=== PATIENT | female | born 2000 | race Caucasian/White ===

== ENCOUNTER 2018-05-10 10:39 | Inpatient (IN) | payer OTHER ==
[~2018-05-10] VITALS: Ht 162.6 cm; Wt 109.4 kg
[2018-06-17 17:07] VITALS: Ht 162.6 cm; Wt 109.4 kg
[2018-06-17] MEDS ORDERED: PNV11TAB PO (17:08)
[2018-06-17] MEDS: LACTATED RINGER'S 1,000 ML IV SCH ×2 (17:22→23:10)
[2018-06-17] MEDS ORDERED: OXYTOCIN 30 UNITS/LR 500 ML IV PRN (17:30)
[2018-06-17] MEDS ORDERED: OXYTOCIN 30 UNITS/LR 500 ML IV SCH ×2 (17:30)
[2018-06-17] MEDS ORDERED: METHYLERGONOVINE 0.2 MG INJ IM PRN (17:30)
[2018-06-17] MEDS ORDERED: MISOPROSTOL 200 MCG TAB PR PRN (17:30)
[2018-06-17] MEDS ORDERED: BUTORPHANOL 2 MG INJ IV PRN (17:30)
[2018-06-17] MEDS ORDERED: CARBOPROST 250 MCG INJ IM PRN (17:30)
[2018-06-17] MEDS ORDERED: IBUPROFEN 600 MG TAB PO PRN (17:30)
[2018-06-17] MEDS ORDERED: LIDOCAINE 1% (MPF) 30 ML INJ INJ PRN (17:30)
[2018-06-17] MEDS: MISOPROSTOL 50 MCG CAPSULE PO SCH (21:21)
[2018-06-18] MEDS: MISOPROSTOL 50 MCG CAPSULE PO SCH ×4 (01:28→14:14)
[2018-06-18] MEDS: LACTATED RINGER'S 1,000 ML IV SCH ×3 (07:05→23:30)
--- NOTE | 2018-06-18 20:41 | PREAC ---
Date/Time of Note Date/Time of Note DATE: 06/18/18 TIME: 20:40 Anesthesia Eval and Record Evaluation Time Pre-Procedure Interview DATE: 06/18/18 TIME: 20:40 Age 18 Sex female NPO: 8 hrs Preoperative diagnosis labor pain Planned procedure labor epidural Past Medical History Past Medical History: Includes GI: Obesity Surgery & Anesthesia Issues No known issue Meds Anticoagulation: No Beta Magnolia within 24 hr: No Reason Beta Magnolia not given: Pt. not on B-Magnolia Reported Medications [id number] ( 19) 1 Each Tablet, 1 TAB PO DAILY, TAB 06/17/18 Current Medications Lactated Ringer's 1,000 ml @ 125 mls/hr Q8H IV Last administered on 06/18/18at 20:27; Admin Dose 125 MLS/HR; Start 06/17/18 at 17:08 Butorphanol Tartrate (Stadol) 2 mg Q2H PRN IV .PAIN; Start 06/17/18 at 17:30 Lidocaine (Xylocaine 1% (Mpf)) 30 ml ONCE PRN INJ .EPISIOTOMY; Start 06/17/18 at 17:30 Oxytocin/Lactated Ringer's 500 ml @ 500 mls/hr ONCE POST IV ; Start 06/17/18 at 17:30 Oxytocin/Lactated Ringer's 500 ml @ 125 mls/hr POST IV ; Start 06/17/18 at 17:30 Ibuprofen (Motrin) 600 mg ONCE PRN PO .PAIN 1-5; Start 06/17/18 at 17:30 Oxytocin/Lactated Ringer's 500 ml @ 0 mls/hr ONCE PRN IV .VAGINAL BLEEDING; Start 06/17/18 at 17:30 Methylergonovine Maleate (Methergine) 0.2 mg ONCE PRN IM .VAGINAL BLEEDING; Start 06/17/18 at 17:30 Carboprost Tromethamine (Hemabate) 250 mcg ONCE PRN IM .VAGINAL BLEEDING; Start 06/17/18 at 17:30 Misoprostol (Cytotec) 1,000 mcg ONCE PRN IL .VAGINAL BLEEDING; Start 06/17/18 at 17:30 Misoprostol (Cytotec 50 Mcg Capsule) 50 mcg Q4 PO Last administered on 06/18/18 at 14:14; Admin Dose 50 MCG; Start 06/17/18 at 21:00 Meds reviewed: Yes Allergies Coded Allergies: No Known Allergy (Unverified , 05/13/18) Allergies Reviewed: Yes Labs/Studies Labs Reviewed: Reviewed by anesthesiologist Result Diagram: 06/17/18 1700 test: Positive Pre-procedure Exam Airway: Adequate mouth opening, Adequate thyromental dist Mallampati: Mallampati III Teeth: Normal Lung: Normal Heart: Normal ASA Physical Status ASA physical status: 2 Emergency: None Planned Anesthetic Neuraxial: Epidural Planned Pain Management Epidural, Parenteral pain med, Other neuraxial med Pre-operative Attestations Prior to commencing anesthesia and surgery, the patient was re-evaluated, there was verification of: *The patient's identity *The results of appropriate recent lab work and preoperative vital signs *The above evaluation not changing prior to induction *Anesthetic plan, risk benefits, alternative and complications discussed with patient/family; questions answered; patient/family understands, accepts and wishes to proceed. TESSA OMER MD Jun 18, 2018 20:41
[2018-06-18] MEDS ORDERED: ONDANSETRON 4 MG INJ IV PRN (21:00)
[2018-06-18] MEDS ORDERED: KETOROLAC 30 MG INJ IV PRN (21:00)
[2018-06-18] MEDS ORDERED: NALOXONE (0.4 MG/ML) INJ IV PRN (21:00)
[2018-06-18] MEDS ORDERED: FENTAnyl 2MCG/ML-ROPIV 0.2% 100 ML BAG EPI SCH (21:00)
[2018-06-18] MEDS ORDERED: HYDROmorphONE 0.5 MG/0.5 ML SYG IV PRN ×2 (21:00)
[2018-06-18] MEDS ORDERED: DIPHENHYDRAMINE 50 MG INJ IV PRN (21:00)
[2018-06-18] MEDS ORDERED: ZOLPIDEM 5 MG TAB PO PRN (21:00)
--- NOTE | 2018-06-18 21:59 | PAC ---
Date/Time of Note Date/Time of Note DATE: 06/18/18 TIME: 21:58 Post-Anesthesia Notes Post-Anesthesia Note Activity: WNL Respiratory function: WNL Cardiovascular function: WNL Mental status: Baseline Pain reasonably controlled: Yes Hydration appropriate: Yes Nausea/Vomiting absent: Yes TESSA OMER MD Jun 18, 2018 21:59
[2018-06-19] MEDS: MISOPROSTOL 50 MCG CAPSULE PO SCH (01:03)
[2018-06-19] MEDS ORDERED: ACETAMINOPHEN 325 MG TAB PO PRN ×2 (04:00→14:00)
[2018-06-19] MEDS ORDERED: OXYTOCIN 30 UNITS/LR 500 ML IV SCH (04:00)
[2018-06-19] MEDS: LACTATED RINGER'S 1,000 ML IV SCH ×2 (05:07→07:33)
[2018-06-19] MEDS ORDERED: ACETAMINOPHEN 650 MG SUPP PR ONE (06:30)
[2018-06-19] MEDS ORDERED: AMPICILLIN 2 GM/NS (PMX) 100 ML ONE (07:26)
[2018-06-19] MEDS ORDERED: AMPICILLIN 2 GM/NS (PMX) 100 ML IVPB SCH (07:30)
[2018-06-19] MEDS: GENTAMICIN 80 MG/NS (PMX) 50 ML IVPB SCH ×3 (07:51→23:26)
[2018-06-19] MEDS ORDERED: ACETAMINOPHEN 1000MG/100ML IV 100 ML IVPB ONE (09:57)
--- NOTE | 2018-06-19 10:43 | HP ---
Date/Time of Note Date/Time of Note DATE: 06/19/18 TIME: 10:39 OB - History Hx of Present Free Text/Dictation Late entry note. Patient seen on 06/18/2018 18 years old 1 with single intrauterine at 40 weeks and 2 days with a KALIN of 06/16/2018 was admitted for induction of labor yesterday. She states good movement. She denies nausea, vomiting, shortness of breath, chest pain, headache, visual changes, vaginal bleeding or LOF. Risk factor: -Obesity Chief Complaint: Scheduled for induction of labor Estimated Due Date: Jun 16, 2018 : 1 Care: Good Care Ultrasounds: Normal mid trimester US Obstetrical Complications: None Medical Complications: None Past Family/Social History * Past Medical, Surgical, Family and Obstetric Histories reviewed from chart. Blood Type: O- Rubella: immune RPR/VDRL: Negative GBS Status: Negative HBsAG: Negative OB Admission Exam Vital Signs Vital Signs Vital Signs Date Temp Pulse Resp B/P (MAP) Pulse Ox O2 O2 Flow FiO2 Time Delivery Rate 06/19/18 103.5 10:25 Physical Exam HEENT: WNL Heart: Rhythm Normal Lungs: Clear Abdomen: WNL Extremities: Normal Cervical Dilatation: Fingertip Effacement: 25% Station: -3 Heart Rate: 140's Accelerations: Accelerations Present Decelerations: No Decelerations Varibility: Moderate Contractions on Admission: >10 Minutes Apart Intensity: Mild Last 72 hours Lab Results CBC & BMP 06/17/18 17:00 OB Assessment/Plan Other plan: 18 years old 1 at 40 weeks and 2 days admitted for induction of labor - FHR: No sign of metabolic acidosis- Category I - Continuous EFM, toco - CBC, blood type and screen - Analgesia options with R/B/A discussed in detail with patient - Epidural per patient request - Please see the orders - O neg. received RhoGam at 28 weeks. RhoGam after delivery if indicated will be given - Rubella: Immune - GBS: negative Admission, procedures, expectations, risks and possible complications have been discussed in detail with the patient. Risk of vaginal delivery including but not limited to bleeding, infection, cervical laceration, placental retention, injury to fetus, blood transfusion, blood transfusion related infection, risk of anesthesia, adhesion, cervical laceration, episiotomy/laceration, possible delivery with risk of bleeding, infection, injury to other organs ( bowel, bladder, ureter, vessels, nerves), injury to fetus, blood transfusion, blood transfusion related infection, risk of anesthesia, scar and hernia formation, needs for future , removal of uterus or any other indicated surgery discussed with the patient. She expressed understanding and repeats the risks. All of her questions were answered. She signed the informed consent. PHYSICIAN'S VERIFICATION OF INFORMED CONSENT The patient was counseled regarding the procedure, its indications, risks, potential complications and alternatives and any questions were answered. Consent was obtained. PLANNED PROCEDURE/TREATMENT: Vaginal delivery, episiotomy, repair of laceration possible delivery ANDREA GROSS Jun 19, 2018 10:43
--- NOTE | 2018-06-19 10:46 | LDN ---
Date/Time of Note Date/Time of Note DATE: 06/19/18 TIME: 10:43 Delivery Summary 18 years old 1 with single intrauterine at 40 weeks and 3 days with possible chorioamnionitis delivered a viable male at 09:29 over right lateral vaginal wall and anterior labial laceration as well posterior vaginal wall laceration. Nose and mouth suctioned. Rest of body delivered. Cord clamped and cut after stopping pulsation. Placenta delivered spontaneously with three-vessel cord. Laceration repaired with 2-0 Vicryl and 3-0 chromic with SH needle. Patient tolerated procedure well Weight 3755 g - 8 pound 4 ounces Height 20 inches 9 at 1 minutes and 9 at 5 minutes EBL 450 mL, patient received Pitocin, Methergine and 400 mcg Cytotec p.o. for uterine atonia Weeks of Gestation 40 weeks and 3 days Placenta Delivered: Spontaneously Meconium: none Episiotomy: No Estimated blood loss: 450 Sponge & Needle done & correct: Yes All needle counts correct: Yes Any foreign bodies felt in the: No Delivery Information Sex Sex: male Apgars 1 Minute: 9 5 Minute: 9 10 Minute: 10 Suctioning Nose & mouth suctioned at keyanna: Yes Umbilical Cord Umbilical cord with: 3 Vessels Cord presentations: no nuchal cord Cord Blood was obtained: Yes Mother & Baby Disposition Disposition Mom & Baby to Maternity; Good: Yes ANDREA GROSS Jun 19, 2018 10:46
[2018-06-19 12:55] VITALS: BP 112/70; PULSE 103; RESP 18
[2018-06-19] MEDS: DEXTROSE 5%-LR 1,000 ML IV SCH ×2 (13:49→21:49)
[2018-06-19] MEDS ORDERED: MISOPROSTOL 200 MCG TAB PR PRN (14:00)
[2018-06-19] MEDS ORDERED: OXYCODONE/ASPIRIN (4.88/325) TAB PO PRN (14:00)
[2018-06-19] MEDS ORDERED: METHYLERGONOVINE 0.2 MG INJ IM PRN (14:00)
[2018-06-19] MEDS ORDERED: ONDANSETRON 4 MG INJ IV PRN (14:00)
[2018-06-19] MEDS ORDERED: BENZOCAINE 20% 56 ML SPRAY TOP PRN (14:00)
[2018-06-19] MEDS ORDERED: DIPHENHYDRAMINE 50 MG INJ IV PRN (14:00)
[2018-06-19] MEDS ORDERED: OXYTOCIN 30 UNITS/LR 500 ML IV PRN (14:00)
[2018-06-19] MEDS ORDERED: WITCH HAZEL/GLYCERIN PAD PR PRN (14:00)
[2018-06-19] MEDS ORDERED: DIBUCAINE 1% 30 GM OINT TOP PRN (14:00)
[2018-06-19] MEDS ORDERED: SENNA/DOCUSATE NA (8.6MG/50MG) TAB PO PRN (14:00)
[2018-06-19] MEDS ORDERED: LANOLIN HPA 1 PKT TOP PRN (14:00)
[2018-06-19] MEDS ORDERED: ZOLPIDEM 5 MG TAB PO PRN (14:00)
[2018-06-19] MEDS ORDERED: CARBOPROST 250 MCG INJ IM PRN (14:00)
[2018-06-19] MEDS: IBUPROFEN 600 MG TAB PO SCH ×3 (14:49→23:26)
[2018-06-19] MEDS: AMPICILLIN 2 GM/NS (PMX) 100 ML IV SCH ×2 (14:50→20:35)
[2018-06-19] MEDS: LACTATED RINGER'S 1,000 ML IV* SCH (14:51)
[2018-06-19 16:26] VITALS: BP 121/59; PULSE 105; RESP 20
[2018-06-19 20:45] VITALS: BP 110/53; PULSE 20; RESP 20
[2018-06-20] VITALS: BP 93/57; PULSE 87; RESP 20
[2018-06-20] MEDS: AMPICILLIN 2 GM/NS (PMX) 100 ML IV SCH ×4 (02:08→20:44)
[2018-06-20 04:09] VITALS: BP 103/52; PULSE 99; RESP 20
[2018-06-20] MEDS: IBUPROFEN 600 MG TAB PO SCH ×3 (05:43→17:52)
[2018-06-20] MEDS: DEXTROSE 5%-LR 1,000 ML IV SCH ×3 (05:49→21:49)
[2018-06-20] MEDS: LACTATED RINGER'S 1,000 ML IV* SCH ×2 (06:13→13:49)
[2018-06-20 08:00] VITALS: BP 92/53; PULSE 87; RESP 17
[2018-06-20] MEDS: GENTAMICIN 80 MG/NS (PMX) 50 ML IVPB SCH ×2 (08:01→16:28)
[2018-06-20 15:50] VITALS: BP 98/52; PULSE 94; RESP 18
--- NOTE | 2018-06-20 18:59 | QN ---
Documentation Comment PPD#1 is table afebrile tolerates diet No VB +BM +voids Vs stable Gen NAD Abd soft NT ND Genitalia No blood at perineum --->Discharge plan tomorrow NELA ALLEN M.D. Jun 20, 2018 18:58
[2018-06-20 19:30] VITALS: BP 96/57; PULSE 96; RESP 18
[2018-06-21] MEDS: GENTAMICIN 80 MG/NS (PMX) 50 ML IVPB SCH ×2 (00:47→08:16)
[2018-06-21] MEDS: IBUPROFEN 600 MG TAB PO SCH ×3 (00:51→12:35)
[2018-06-21] MEDS: AMPICILLIN 2 GM/NS (PMX) 100 ML IV SCH ×2 (03:01→09:03)
[2018-06-21 03:43] VITALS: BP 130/67; RESP 18
[2018-06-21 08:00] VITALS: BP 102/58; PULSE 89; RESP 16
[2018-06-21] MEDS ORDERED: DIPHTH/TET/ACEL PERTUSS (ADULT) 0.5 ML VIAL IM* ONE (09:00)
[2018-06-21] MEDS ORDERED: MEASLES,MUMPS,RUBELLA VACCINE INJ SC* ONE (09:00)
--- NOTE | 2018-06-21 12:19 | DS ---
Date/Time of Note Date/Time of Note DATE: 06/21/18 TIME: 12:19 Discharge Summary Admission/Discharge Info Admit Date/Time Jun 17, 2018 at 16:03 Discharge Date/Time 06/21/2018 Discharge Diagnosis Patient Condition: Good Hospital Course uneventful Home Meds Reported Medications [id number] ( 19) 1 Each Tablet, 1 TAB PO DAILY, TAB 06/17/18 Primary Care Provider Not On Staff Doctor NELA ALLEN M.D. Jun 21, 2018 12:19
--- NOTE | 2018-06-21 12:19 | QN ---
Documentation Comment PPD#2 is table afebrile tolerates diet No VB +BM +voids Vs stable Gen NAD Abd soft NT ND Genitalia No blood at perineum --->Discharge plan NELA ALLEN M.D. Jun 21, 2018 12:19
== END 2018-06-21 15:35 | disposition home or self-care (01) | DRG 807 ==
LOC: OBT 10:39 → EDSTATUS 06-16 16:00 → L-D 06-17 16:03 → PP1 06-19 13:03
PROVIDERS: ADMIT Obstetrics & Gynecology; ATTEND Obstetrics & Gynecology
PROC: 10E0XZZ Delivery of Products of Conception, External Approach (ICD-10-PCS; principal; 2018-06-19)
PROC: 0UQMXZZ Repair Vulva, External Approach (ICD-10-PCS; 2018-06-19)
DX: O48.0 Post-term pregnancy (principal); Z37.0 Single live birth; Z3A.40 40 weeks gestation of pregnancy; O99.214 Obesity complicating childbirth; E66.9 Obesity, unspecified; O70.0 First degree perineal laceration during delivery
CPT/HCPCS: 62319; 76815; 85025; 85610; 85730; 86592; 86850; 86885; 86900; 86901; 87340; 88307; 90715; 99464; J0131; J0290; J1580; J2210; J2405; J2590; J2790; J3010; J7120; J7121

== ENCOUNTER 2018-05-13 12:40 | Outpatient (CLI) | payer OTHER ==
[~2018-05-13] VITALS: Ht 165.1 cm; Wt 105.5 kg
[2018-05-13 14:08] VITALS: Ht 165.1 cm; Wt 105.5 kg
[2018-05-13 14:11] VITALS: BP 109/63; PULSE 90; RESP 20
--- NOTE | 2018-05-13 16:51 | PN ---
Triage Information Date/Time May 13, 2018 Reason for visit: Weeks of Gestation 35 weeks and 1 day /Para 1 para 0 Diabetes: none Hypertention: none Additional information 18-year-old with IUP at 35 weeks and 1 day with history of polyhydramnios was sent from clinic for testing due to polyhydramnios. Patient denies any leaking of fluid, vaginal bleeding decreased movement or uterine contractions. She denies any symptoms. Reports good movement. Objective Vital Signs Date Temp Pulse Resp B/P (MAP) Pulse Ox O2 O2 Flow FiO2 Time Delivery Rate 05/13/18 98.2 90 20 109/63 Room Air 14:11 (78) Heart Rate: 130's Heart Rate Comments NST: Category 1 and reactive No contraction on the monitor Contractions: None Exam Appearance: Alert and oriented x4 does not appear to be in any acute distress, obese Abdomen: Soft, gravid, fundal height appears to be larger than gestational age NST: Category 1 and reactive BPP: 8/8 CHEMA within normal limits 16.7 Results/Medications Imaging Results PROCEDURE: US biophysical profile. CLINICAL INDICATION: History of polyhydramnios. TECHNIQUE: Multiple sonographic images of the uterus were obtained. The images were reviewed on a PACS workstation. COMPARISON: No prior studies are available for comparison. FINDINGS: There is a single live intrauterine gestation. heart rate is 161 beats per minute. The position is cephalic. The placenta is right lateral grade 1 with no abruption or previa. The CHEMA is 16.7 cm. (Normal = 5-20 cm.) Breathing Movement: 2 Gross Body Movement: 2 Tone: 2 Qualitative Amniotic Fluid Volume: 2 TOTAL: 8 IMPRESSION: 1. The biophysical score is 8/8. 2. CHEMA is 16.7 cm. RPTAT: QQ Disposition: Discharge Assessment/Plan IUP at 35 weeks and 1 day History of polyhydramnios. Unclear etiology Today's ultrasound, CHEMA within normal limits Obese testing reassuring No evidence of labor or PPROM Patient reports good movement Patient will be discharged home Follow-up with primary OB office within 48 hours to 72 hours after discharge from the hospital Rest of the management to be determined by primary OB office. Patient was advised to contact primary OB office for the rest of the follow-up appointments Strict labor precautions kick count discussed with the patient as well as PPROM All questions were answered to patient's best satisfaction. REZA MIX MD May 13, 2018 16:51
== END 2018-05-13 16:56 | disposition home or self-care (01) ==
LOC: L-D 12:40 → OBT 12:40 → L-D 13:58 → OBT 16:56
PROVIDERS: ATTEND Obstetrics & Gynecology
DX: O40.3XX0 Polyhydramnios, third trimester, not applicable or unspecified (principal); Z3A.35 35 weeks gestation of pregnancy
CPT/HCPCS: 76818